=== PATIENT | male | born 1945 | race Caucasian/White ===

== ENCOUNTER → 2016-09-16 | Outpatient (CLI) | payer OTHER ==
[2016-09-16 09:01] LABS: HEMOGLOBIN A1C 6.15 % (4.2-6.0)
[2016-09-16 09:13] LABS: CREATININE, URINE 147.7 MG/DL (15-500)
== END ==
LOC: LAB 08:03
PROVIDERS: ATTEND Internal Medicine
DX: E11.9 Type 2 diabetes mellitus without complications (principal)
CPT/HCPCS: 36415; 82043; 83036

== ENCOUNTER → 2016-09-21 | Outpatient (CLI) | payer OTHER | LOC: MMPC 11:11 | PROVIDERS: ATTEND Internal Medicine | DX: E11.9 Type 2 diabetes mellitus without complications (principal); I10 Essential (primary) hypertension; G40.909 Epilepsy, unspecified, not intractable, without status epilepticus; E78.5 Hyperlipidemia, unspecified | CPT/HCPCS: 99214 ==